=== PATIENT | female | born 1995 | race American Indian/Alaskan Native ===

== ENCOUNTER 2021-01-10 20:11 | Emergency (ER) | payer SELFPAY ==
[2021-01-10 20:42] VITALS: BP 144/90
--- NOTE | 2021-01-10 21:12 | Emergency Department Report ---
Chief Complaint: Sore Throat Stated Complaint: THROAT PAIN/NECK SWOLLEN Time Seen by Provider: 01/10/21 21:04 - HPI History of Present Illness: 25-year-old -[place] female presents to the emergency room stating that she has a rash to her neck for about 3 days. Patient states that she had a skin tag and has scratched it and then the rash developed. Patient denies any nausea no vomiting no fever no chills no shortness of breath no chest pain. She denies any sore throat. 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 Patient has a past medical history of asthma no other complaints - Exam Vital Signs: Vital Signs 01/10/21 20:40 Temperature 98.2 F Pulse Rate 72 Respiratory 18 Rate Blood Pressure 144/90 O2 Sat by Pulse 99 Oximetry Physical Exam: Alert and oriented x3 no acute distress nontoxic in appearance HEENT: Moist mucosa, no tonsillar hypertrophy or erythematous. Uvula is midline and not erythematous no enlargement. No exudate appreciated, lymph nodes mildly hypertrophic with minimal tenderness rash appreciated the near hypopigmented nonvesicular nonerythematous no discharge appreciated. Lungs. No accessory muscles use effortless breathing Ambulatory without difficulties MSE screening note: Focused history and physical exam performed. Due to findings the following was ordered: 25-year-old -[place] female presents to the emergency room stating that she has a rash to her neck for about 3 days. Patient states that she had a skin tag and has scratched it and then the rash developed. Patient denies any nausea no vomiting no fever no chills no shortness of breath no chest pain. She denies any sore throat. 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 Patient has a past medical history of asthma no other complaints Recommend Tylenol ibuprofen continue with the hydrocortisone cream follow-up w ith the urgent care or primary care provider no concerns for any sepsis infection patient is stable to be discharged home. ED Disposition for MSE Disposition: MED SCREENING EXAM-LEFT Is pt being admited?: No Does the pt Need Aspirin: No Condition: Stable Instructions: Rash, Adult Additional Instructions: Tylenol ibuprofen, hydrocortisone cream follow-up with a primary care urgent care. Referrals: [facility] [Provider Group] - 3-5 Days Forms: Work/School Release Form(ED)
== END 2021-01-10 22:27 | disposition left against medical advice (07) ==
LOC: ED 20:11
DX: R07.0 Pain in throat (principal); Z53.21 Procedure and treatment not carried out due to patient leaving prior to being seen by health care provider